=== PATIENT | female | born 1970 | race Caucasian/White ===

== ENCOUNTER 2016-10-15 02:09 | Observation (INO) ==
[2016-10-15] MEDS ORDERED: 0.9 % Sodium Chloride 1,000 ML IVC ONE ×2 (02:18→06:37)
[2016-10-15 02:56] LABS: Bilirubin,Urine Negative (Negative); Blood,Urine Negative (Negative); Clarity,Urine Clear (Clear); Color,Urine Yellow (Yellow); Glucose,Urine (UA) Normal (Normal); Ketones,Urine Negative (Negative); Leukocyte Esterase,Urine Negative (Negative); Nitrite,Urine Negative (Negative); PH,Urine 6.5 pH Units (5.0-8.0); Protein,Urine 100 mg/dL (Neg-Trace); Specific Gravity,Urine 1.006 (1.010-1.025); Urobilinogen,Urine Normal (Normal)
[2016-10-15 02:58] LABS: Bacteria,Urine None Seen per hpf (None-Few); Hyaline Casts,Urine None Seen per lpf (None-Few); RBC,Urine 0-3 per hpf (0-3); Squamous Epithelial Cell,Urine Many per lpf (None-Few); WBC,Urine 0-3 per hpf (0-3)
[2016-10-15 03:04] LABS: Amphetamine Screen,Urine Negative ng/mL (Cutoff=1000); Barbiturate Screen,Urine Negative ng/mL (Cutoff=200); Benzodiazepines Screen,Urine Negative ng/mL (Cutoff=200); Cannabinoid Screen,Urine Negative ng/mL (Cutoff = 50); Cocaine Screen,Urine Negative ng/mL (Cutoff= 300); Opiate Screen,Urine Negative ng/mL (Cutoff=300); Phencyclidine Screen,Urine Negative ng/mL (Cutoff=25)
[2016-10-15] MEDS ORDERED: 0.9 % Sodium Chloride 1,000 ML ONE ×2 (03:06→04:45)
--- NOTE | 2016-10-15 06:06 | Emergency Department Note ---
START Narrative - START START: I, David Craig MD, personally performed a history and physical exam of the patient and discussed their management with the midlevel provicer, PAC/REAL PROPERTY APPRAISER. I reviewed the midlevel provider's note and agree with the documented findings, medical decision making, and plan of care. 46-year-old female presents to the emergency department after an intentional overdose. Patient drank a bunch of alcohol and took 7 or 8 of her Zanaflex muscle relaxers. Patient states that she does not really know if she was trying to hurt herself but she just got mad. She states that she did fall and hit the back of her head and complains of some soreness and pain in the back of her head and neck. No other pain or injury. On examination patient is a well-developed well-nourished female in no acute distress. She is alert and oriented 3. There is no cyanosis or diaphoresis. She does appear intoxicated and there is a strong odor of alcohol on her breath. Some diffuse tenderness over the posterior neck and occipital scalp but no palpable hematomas. Breath sounds are clear and equal bilaterally. Heart regular rate and rhythm. Abdomen soft with normal bowel sounds. No gross focal neurological deficits. CT of the head and cervical spine was obtained and was negative. Urine tox screen negative. Labs reviewed. Alcohol level 115. No acute changes on EKG. Patient did develop some hypotension while here in the emergency department requiring normal saline boluses. Plan is to consult the hospitalist for admission. At shift change the patient [facility] Selina Hines. She was also discussed with the oncoming physician Dr. Casas.
[2016-10-15 07:11] LABS: Basophils # 0.1 K/mcL (0.0-0.2); Basophils % 0.4 %; Eosinophils # 0.2 K/mcL (0.0-0.6); Eosinophils % 1.4 %; Hematocrit 37.9 % (35.3-44.9); Hemoglobin 12.7 g/dL (11.5-15.4); Lymphocytes % 33.9 %; Mean Corpuscular HGB Conc 33.5 g/dL (31.6-35.5); Mean Corpuscular Hemoglobin 32.3 pg (28.0-33.3); Mean Corpuscular Volume 96.4 fL (83.0-100.0); Mean Platelet Volume 10.1 fL (9.4-12.4); Monocytes # 0.6 K/mcL (0.0-1.3); Monocytes % 5.2 %; Neutrophils # 6.8 K/mcL (1.6-8.9); Platelet Count 209 K/mcL (140-400); Red Blood Count 3.93 M/mcL (3.82-4.97); Red Cell Distribution Width 12.1 % (11.5-14.5); Segmented Neutrophils % 58.1 %
[2016-10-15 07:13] LABS: Alanine Aminotransferase 39 Units/L (0-55); Albumin 3.2 g/dL (3.5-5.0); Albumin/Globulin Ratio 1.1 (1.1-2.2); Alkaline Phosphatase 67 Units/L (38-126); Aspartate Amino Transferase 24 Units/L (5-34); BUN/Creatinine Ratio 14 (6-26); Bilirubin,Direct 0.2 mg/dL (0.0-0.5); Bilirubin,Indirect 0.2 mg/dL (0.0-1.2); Bilirubin,Total 0.4 mg/dL (0.2-1.2); Blood Urea Nitrogen 9 mg/dL (7-20); Carbon Dioxide 16 mEq/L (19-29); Chloride 111 mEq/L (98-109); Ethanol 115 mg/dL (0-10); Globulin 2.8 g/dL (2.4-3.5); Glucose 106 mg/dL (70-99); Osmolality,Calculated 289 (280-300); Sodium 140 mEq/L (136-145); eGFR For African Americans > 60 (> 60); eGFR For Non-African Americans > 60 (> 60)
[2016-10-15 07:14] LABS: Acetaminophen < 1.0 mcg/mL (10-30); Salicylate < 5.0 mg/dL (15-30)
--- NOTE | 2016-10-15 07:15 | Emergency Department Note ---
Overdose - Lab Data Result diagrams: 10/15/16 06:52 10/15/16 06:52 Lab Results 10/15/16 10/15/16 10/15/16 Range/Units 02:50 02:50 02:50 WBC (4.3-11.1) K/mcL RBC (3.82-4.97) M/mcL Hgb (11.5-15.4) g/dL Hct (35.3-44.9) % MCV (83.0-100.0) fL MCH (28.0-33.3) pg MCHC (31.6-35.5) g/dL RDW (11.5-14.5) % Plt Count (140-400) K/mcL MPV (9.4-12.4) fL Immature Gran % (0-4) % Seg Neutrophils % % Lymphocytes % % Monocytes % % Eosinophils % % Basophils % % Neutrophils # (1.6-8.9) K/mcL Lymphocytes # (0.6-4.6) K/mcL Monocytes # (0.0-1.3) K/mcL Eosinophils # (0.0-0.6) K/mcL Basophils # (0.0-0.2) K/mcL Sodium (136-145) mEq/L Potassium (3.5-4.5) mEq/L Chloride (98-109) mEq/L Carbon Dioxide (19-29) mEq/L BUN (7-20) mg/dL Creatinine (0.57-1.11) mg/dL Est GFR ( Amer) (> 60) Est GFR (Non-Af Amer) (> 60) BUN/Creatinine Ratio (6-26) Glucose (70-99) mg/dL Calculated Osmolality (280-300) Calcium (8.6-10.8) mg/dL Total Bilirubin (0.2-1.2) mg/dL Direct Bilirubin (0.0-0.5) mg/dL Indirect Bilirubin (0.0-1.2) mg/dL AST (5-34) Units/L ALT (0-55) Units/L Alkaline Phosphatase (38-126) Units/L Serum Total Protein (6.0-8.3) g/dL Albumin (3.5-5.0) g/dL Globulin (2.4-3.5) g/dL Albumin/Globulin Ratio (1.1-2.2) Urine Color Yellow (Yellow) Urine Clarity Clear (Clear) Urine pH 6.5 (5.0-8.0) pH Units Ur Specific [place] 1.006 L (1.010-1.025) Urine Protein 100 H (Neg-Trace) mg/dL Urine Glucose (UA) Normal (Normal) mg/dL Urine Ketones Negative (Negative) mg/dL Urine Blood Negative (Negative) Urine Nitrite Negative (Negative) Urine Bilirubin Negative (Negative) Urine Urobilinogen Normal (Normal) mg/dL Ur Leukocyte Esterase Negative (Negative) Urine Microscopic RBC 0-3 (0-3) per hpf Urine Microscopic WBC 0-3 (0-3) per hpf Ur Squamous Epith Cells Many H (None-Few) per lpf Urine Bacteria None Seen (None-Few) per hpf Hyaline Casts None Seen (None-Few) per lpf Urine Test Negative (Negative) Salicylates (15-30) mg/dL Urine Opiates Screen Negative (Mdlksf=705) ng/mL Acetaminophen (10-30) mcg/mL Ur Barbiturates Screen Negative (Mxawoq=567) ng/mL Ur Phencyclidine Scrn Negative (Cutoff=25) ng/mL Ur Amphetamines Screen Negative (Rhnxxf=8694) ng/mL U Benzodiazepines Scrn Negative (Piervb=852) ng/mL Urine Cocaine Screen Negative (Cutoff= 300) ng/mL U Marijuana (THC) Screen Negative (Cutoff = 50) ng/mL Ethyl Alcohol (0-10) mg/dL 10/15/16 10/15/16 Range/Units 06:52 06:52 WBC 11.8 H (4.3-11.1) K/mcL RBC 3.93 (3.82-4.97) M/mcL Hgb 12.7 (11.5-15.4) g/dL Hct 37.9 (35.3-44.9) % MCV 96.4 (83.0-100.0) fL MCH 32.3 (28.0-33.3) pg MCHC 33.5 (31.6-35.5) g/dL RDW 12.1 (11.5-14.5) % Plt Count 209 (140-400) K/mcL MPV 10.1 (9.4-12.4) fL Immature Gran % 1.0 (0-4) % Seg Neutrophils % 58.1 % Lymphocytes % 33.9 % Monocytes % 5.2 % Eosinophils % 1.4 % Basophils % 0.4 % Neutrophils # 6.8 (1.6-8.9) K/mcL Lymphocytes # 4.0 (0.6-4.6) K/mcL Monocytes # 0.6 (0.0-1.3) K/mcL Eosinophils # 0.2 (0.0-0.6) K/mcL Basophils # 0.1 (0.0-0.2) K/mcL Sodium 140 (136-145) mEq/L Potassium 4.0 (3.5-4.5) mEq/L Chloride 111 H (98-109) mEq/L Carbon Dioxide 16 L (19-29) mEq/L BUN 9 (7-20) mg/dL Creatinine 0.63 (0.57-1.11) mg/dL Est GFR ( Amer) > 60 (> 60) Est GFR (Non-Af Amer) > 60 (> 60) BUN/Creatinine Ratio 14 (6-26) Glucose 106 H (70-99) mg/dL Calculated Osmolality 289 (280-300) Calcium 8.0 L (8.6-10.8) mg/dL Total Bilirubin 0.4 (0.2-1.2) mg/dL Direct Bilirubin 0.2 (0.0-0.5) mg/dL Indirect Bilirubin 0.2 (0.0-1.2) mg/dL AST 24 (5-34) Units/L ALT 39 (0-55) Units/L Alkaline Phosphatase 67 (38-126) Units/L Serum Total Protein 6.0 (6.0-8.3) g/dL Albumin 3.2 L (3.5-5.0) g/dL Globulin 2.8 (2.4-3.5) g/dL Albumin/Globulin Ratio 1.1 (1.1-2.2) Urine Color (Yellow) Urine Clarity (Clear) Urine pH (5.0-8.0) pH Units Ur Specific [place] (1.010-1.025) Urine Protein (Neg-Trace) mg/dL Urine Glucose (UA) (Normal) mg/dL Urine Ketones (Negative) mg/dL Urine Blood (Negative) Urine Nitrite (Negative) Urine Bilirubin (Negative) Urine Urobilinogen (Normal) mg/dL Ur Leukocyte Esterase (Negative) Urine Microscopic RBC (0-3) per hpf Urine Microscopic WBC (0-3) per hpf Ur Squamous Epith Cells (None-Few) per lpf Urine Bacteria (None-Few) per hpf Hyaline Casts (None-Few) per lpf Urine Test (Negative) Salicylates < 5.0 L (15-30) mg/dL Urine Opiates Screen (Pgsiek=981) ng/mL Acetaminophen < 1.0 L (10-30) mcg/mL Ur Barbiturates Screen (Sarukx=772) ng/mL Ur Phencyclidine Scrn (Cutoff=25) ng/mL Ur Amphetamines Screen (Sahcbm=9249) ng/mL U Benzodiazepines Scrn (Eaypyt=203) ng/mL Urine Cocaine Screen (Cutoff= 300) ng/mL U Marijuana (THC) Screen (Cutoff = 50) ng/mL Ethyl Alcohol 115 H (0-10) mg/dL - Radiology Data Radiology results reviewed: Yes I reviewed the patient's radiology results. - EKG Data EKG attestation: Yes I reviewed and interpreted this EKG. Overdose HPI - General Chief Complaint: ED Overdose Stated Complaint: Overdose Time Seen by Provider: 10/15/16 02:18 Source: patient, EMS Limitations: no limitations Nursing Notes Reviewed: Yes Vital Signs Reviewed: Yes - History of Present Illness Pt Subjective Complaint: accidental overdose Onset (ago): unknown Intent: other (pain control) How Overdose Was Discovered: family/friend present at time Associated symptoms: lethargy Treatments Prior to Arrival: none - Related Data Home Medications Medication Instructions Recorded Confirmed Bupropion HCl [Wellbutrin Xl] 300 mg PO DAILY 10/15/16 10/15/16 Ergocalciferol (VITAMIN D2) 50,000 unit PO MOFR 10/15/16 10/15/16 [Vitamin D2] Ferrous Sulfate [Ferrous Sulfate] 325 mg PO BID 10/15/16 10/15/16 Hydroxyzine HCl [Hydroxyzine HCl] 25 mg PO TID 10/15/16 10/15/16 Loratadine [Claritin] 10 mg PO DAILY 10/15/16 10/15/16 Meloxicam [Meloxicam] 7.5 mg PO DAILY 10/15/16 10/15/16 Omeprazole [PriLOSEC] 20 mg PO BID 10/15/16 10/15/16 Polyethylene Glycol 3350 [MiraLAX] 17 gm PO DAILY PRN 10/15/16 10/15/16 Sertraline [Zoloft] 100 mg PO DAILY 10/15/16 10/15/16 Sucralfate [Sucralfate] 1 gm PO QID 10/15/16 10/15/16 Allergies Allergy/AdvReac Type Severity Reaction Status Date / Time No Known Allergies Allergy Verified 10/05/16 15:21 Limitations: ROS unobtainable due to patients medical condition Past Medical History - Past Medical History Medical history: Reports: non-contributory Surgical history: Reports: non-contributory Psychiatric history: Reports: no psych history - Social History Smoking Status: Current every day smoker Smokeless Tobacco Status: No Alcohol use: Reports: heavy, recent Drug use: Reports: none Physical Exam - General Limitations: altered mental status General appearance: appears intoxicated, lethargic - Head Head exam: atraumatic, normocephalic - Eye Eye exam: Absent: scleral icterus, conjunctival injection, periorbital swelling , periorbital tenderness - ENT ENT exam: normal oropharynx, mucous membranes moist, normal external ear exam - Neck Neck exam: Present: full ROM. Absent: tenderness, lymphadenopathy - Chest Chest inspection: Present: normal inspection, symmetric chest wall rise - Respiratory Respiratory exam: Present: normal lung sounds bilaterally. Absent: respiratory distress - Cardiovascular Cardiovascular exam: Present: regular rate, normal rhythm. Absent: irregular rhythm - Abdominal Exam Abdominal exam: Present: soft, Non-Tender - Extremities Exam Extremities exam: Present: normal inspection, full ROM, normal capillary refill. Absent: tenderness - Back Exam Back exam: Present: full ROM - Skin Skin exam: Present: warm, dry, intact, normal color. Absent: rash, cyanosis, diaphoresis Course Course Narrative: 46yo Female arrives via squad with reported overdose of 7-8 4m tizanadine as well as alochol. nursing reports pt had drank an entire bottle of vodka. Ingestion time is unknown. Pt seen upon her arrival to exam room. she appears somnolent but responded to sternum rub. She became more alert and stated she took medications to help control her back pain. She states that she did not take the pills intent to harm herself. She mentions that her teenage children had found her at home and had called the squad. On examination no concerning signs of injury or trauma. However When asked, patient stated that she had fallen and injured herself. Workup initiated. CT head and cervical spine ordered. - Reevaluation(s) Reevaluation #1: Patient has been resting comfortably in exam bed. She has been receiving fluids for hypotension. EKG sinus rhythm, normal EKG. Lab work is pending. Did discuss this patient with Dr. Craig, and also has face time with patient. We will continue to monitor patient's vitals, continue fluids, and reevaluate. Negative CT scans. There is a Possible concern for suicidal ideation. At this time it is at the end of my shift and care of this [facility] Please see their following documentation for additional details. Vital Signs Temperature 97.9 F 10/15/16 02:17 Pulse Rate 74 10/15/16 02:17 Respiratory Rate 14 10/15/16 02:17 Blood Pressure 73/39 10/15/16 02:17 O2 Sat by Pulse Oximetry 93 L 10/15/16 02:17 Temperature 97.9 F 10/15/16 02:17 Pulse Rate 71 10/15/16 06:25 Respiratory Rate 14 10/15/16 06:25 Blood Pressure 74/34 10/15/16 06:25 O2 Sat by Pulse Oximetry 99 10/15/16 06:25 Oxygen Delivery Oxygen Delivery Room Air Disposition Clinical Impression: Hypotension arterial Drug overdose Qualifiers: Encounter type: initial encounter Injury intent: accidental or unintentional Qualified Code(s): T50.901A - Poisoning by unspecified drugs, medicaments and biological substances, accidental (unintentional), initial encounter Disposition: Admitted As Inpatient Condition: Fair Referrals: NO,PCP [Primary Care Provider] - Forms: ED Satisfaction Letter Time of Disposition: 07:15 Attestation Statement - Attestation Attestation: I, David Craig MD, personally performed a history and physical exam of the patient and discussed their management with the midlevel provicer, PAC/PLUNGER MACHINE OPERATOR. I reviewed the midlevel provider's note and agree with the documented findings, medical decision making, and plan of care. See additional START note from this emergency department visit.
--- NOTE | 2016-10-15 07:40 | Emergency Department Note ---
Overdose - Lab Data Result diagrams: 10/15/16 06:52 10/15/16 06:52 Lab Results 10/15/16 10/15/16 10/15/16 Range/Units 02:50 02:50 02:50 WBC (4.3-11.1) K/mcL RBC (3.82-4.97) M/mcL Hgb (11.5-15.4) g/dL Hct (35.3-44.9) % MCV (83.0-100.0) fL MCH (28.0-33.3) pg MCHC (31.6-35.5) g/dL RDW (11.5-14.5) % Plt Count (140-400) K/mcL MPV (9.4-12.4) fL Immature Gran % (0-4) % Seg Neutrophils % % Lymphocytes % % Monocytes % % Eosinophils % % Basophils % % Neutrophils # (1.6-8.9) K/mcL Lymphocytes # (0.6-4.6) K/mcL Monocytes # (0.0-1.3) K/mcL Eosinophils # (0.0-0.6) K/mcL Basophils # (0.0-0.2) K/mcL Sodium (136-145) mEq/L Potassium (3.5-4.5) mEq/L Chloride (98-109) mEq/L Carbon Dioxide (19-29) mEq/L BUN (7-20) mg/dL Creatinine (0.57-1.11) mg/dL Est GFR ( Amer) (> 60) Est GFR (Non-Af Amer) (> 60) BUN/Creatinine Ratio (6-26) Glucose (70-99) mg/dL Calculated Osmolality (280-300) Calcium (8.6-10.8) mg/dL Total Bilirubin (0.2-1.2) mg/dL Direct Bilirubin (0.0-0.5) mg/dL Indirect Bilirubin (0.0-1.2) mg/dL AST (5-34) Units/L ALT (0-55) Units/L Alkaline Phosphatase (38-126) Units/L Serum Total Protein (6.0-8.3) g/dL Albumin (3.5-5.0) g/dL Globulin (2.4-3.5) g/dL Albumin/Globulin Ratio (1.1-2.2) Urine Color Yellow (Yellow) Urine Clarity Clear (Clear) Urine pH 6.5 (5.0-8.0) pH Units Ur Specific [place] 1.006 L (1.010-1.025) Urine Protein 100 H (Neg-Trace) mg/dL Urine Glucose (UA) Normal (Normal) mg/dL Urine Ketones Negative (Negative) mg/dL Urine Blood Negative (Negative) Urine Nitrite Negative (Negative) Urine Bilirubin Negative (Negative) Urine Urobilinogen Normal (Normal) mg/dL Ur Leukocyte Esterase Negative (Negative) Urine Microscopic RBC 0-3 (0-3) per hpf Urine Microscopic WBC 0-3 (0-3) per hpf Ur Squamous Epith Cells Many H (None-Few) per lpf Urine Bacteria None Seen (None-Few) per hpf Hyaline Casts None Seen (None-Few) per lpf Urine Test Negative (Negative) Salicylates (15-30) mg/dL Urine Opiates Screen Negative (Nykpxb=411) ng/mL Acetaminophen (10-30) mcg/mL Ur Barbiturates Screen Negative (Saeybq=966) ng/mL Ur Phencyclidine Scrn Negative (Cutoff=25) ng/mL Ur Amphetamines Screen Negative (Vpzfkc=7237) ng/mL U Benzodiazepines Scrn Negative (Lmwmhm=046) ng/mL Urine Cocaine Screen Negative (Cutoff= 300) ng/mL U Marijuana (THC) Screen Negative (Cutoff = 50) ng/mL Ethyl Alcohol (0-10) mg/dL 10/15/16 10/15/16 Range/Units 06:52 06:52 WBC 11.8 H (4.3-11.1) K/mcL RBC 3.93 (3.82-4.97) M/mcL Hgb 12.7 (11.5-15.4) g/dL Hct 37.9 (35.3-44.9) % MCV 96.4 (83.0-100.0) fL MCH 32.3 (28.0-33.3) pg MCHC 33.5 (31.6-35.5) g/dL RDW 12.1 (11.5-14.5) % Plt Count 209 (140-400) K/mcL MPV 10.1 (9.4-12.4) fL Immature Gran % 1.0 (0-4) % Seg Neutrophils % 58.1 % Lymphocytes % 33.9 % Monocytes % 5.2 % Eosinophils % 1.4 % Basophils % 0.4 % Neutrophils # 6.8 (1.6-8.9) K/mcL Lymphocytes # 4.0 (0.6-4.6) K/mcL Monocytes # 0.6 (0.0-1.3) K/mcL Eosinophils # 0.2 (0.0-0.6) K/mcL Basophils # 0.1 (0.0-0.2) K/mcL Sodium 140 (136-145) mEq/L Potassium 4.0 (3.5-4.5) mEq/L Chloride 111 H (98-109) mEq/L Carbon Dioxide 16 L (19-29) mEq/L BUN 9 (7-20) mg/dL Creatinine 0.63 (0.57-1.11) mg/dL Est GFR ( Amer) > 60 (> 60) Est GFR (Non-Af Amer) > 60 (> 60) BUN/Creatinine Ratio 14 (6-26) Glucose 106 H (70-99) mg/dL Calculated Osmolality 289 (280-300) Calcium 8.0 L (8.6-10.8) mg/dL Total Bilirubin 0.4 (0.2-1.2) mg/dL Direct Bilirubin 0.2 (0.0-0.5) mg/dL Indirect Bilirubin 0.2 (0.0-1.2) mg/dL AST 24 (5-34) Units/L ALT 39 (0-55) Units/L Alkaline Phosphatase 67 (38-126) Units/L Serum Total Protein 6.0 (6.0-8.3) g/dL Albumin 3.2 L (3.5-5.0) g/dL Globulin 2.8 (2.4-3.5) g/dL Albumin/Globulin Ratio 1.1 (1.1-2.2) Urine Color (Yellow) Urine Clarity (Clear) Urine pH (5.0-8.0) pH Units Ur Specific [place] (1.010-1.025) Urine Protein (Neg-Trace) mg/dL Urine Glucose (UA) (Normal) mg/dL Urine Ketones (Negative) mg/dL Urine Blood (Negative) Urine Nitrite (Negative) Urine Bilirubin (Negative) Urine Urobilinogen (Normal) mg/dL Ur Leukocyte Esterase (Negative) Urine Microscopic RBC (0-3) per hpf Urine Microscopic WBC (0-3) per hpf Ur Squamous Epith Cells (None-Few) per lpf Urine Bacteria (None-Few) per hpf Hyaline Casts (None-Few) per lpf Urine Test (Negative) Salicylates < 5.0 L (15-30) mg/dL Urine Opiates Screen (Xvhizv=101) ng/mL Acetaminophen < 1.0 L (10-30) mcg/mL Ur Barbiturates Screen (Axznpw=596) ng/mL Ur Phencyclidine Scrn (Cutoff=25) ng/mL Ur Amphetamines Screen (Umwaby=3466) ng/mL U Benzodiazepines Scrn (Weenve=719) ng/mL Urine Cocaine Screen (Cutoff= 300) ng/mL U Marijuana (THC) Screen (Cutoff = 50) ng/mL Ethyl Alcohol 115 H (0-10) mg/dL Overdose HPI - General Chief Complaint: ED Overdose Stated Complaint: Overdose Time Seen by Provider: 10/15/16 02:18 Source: patient, EMS Limitations: altered mental status - Related Data Home Medications Medication Instructions Recorded Confirmed Bupropion HCl [Wellbutrin Xl] 300 mg PO DAILY 10/15/16 10/15/16 Ergocalciferol (VITAMIN D2) 50,000 unit PO MOFR 10/15/16 10/15/16 [Vitamin D2] Ferrous Sulfate [Ferrous Sulfate] 325 mg PO BID 10/15/16 10/15/16 Hydroxyzine HCl [Hydroxyzine HCl] 25 mg PO TID 10/15/16 10/15/16 Loratadine [Claritin] 10 mg PO DAILY 10/15/16 10/15/16 Meloxicam [Meloxicam] 7.5 mg PO DAILY 10/15/16 10/15/16 Omeprazole [PriLOSEC] 20 mg PO BID 10/15/16 10/15/16 Polyethylene Glycol 3350 [MiraLAX] 17 gm PO DAILY PRN 10/15/16 10/15/16 Sertraline [Zoloft] 100 mg PO DAILY 10/15/16 10/15/16 Sucralfate [Sucralfate] 1 gm PO QID 10/15/16 10/15/16 Allergies Allergy/AdvReac Type Severity Reaction Status Date / Time No Known Allergies Allergy Verified 10/05/16 15:21 Past Medical History - Past Medical History Medical history: Reports: non-contributory Surgical history: Reports: non-contributory Psychiatric history: Reports: no psych history - Social History Smoking Status: Current every day smoker Smokeless Tobacco Status: No Alcohol use: Reports: heavy, recent Drug use: Reports: none Physical Exam - General Limitations: altered mental status General appearance: appears intoxicated, lethargic Course - Reevaluation(s) Reevaluation #1: Patient received in signout from Dr. Craig at 7 AM. Patient took multiple tablets of her Zanaflex. Patient also consumed alcohol.. She said she "wanted to get high". Patient has been observed for 5-1/2 hours in the emergency department and Motrin and maintains to be persistently hypotensive with a systolic in the mid to low 90s despite receiving 40+ liter normal saline boluses. Patient is arousable to voice. GCS 15. Patient is getting a breakfast tray. Hospitalist was paged for admission. Provided 40 minutes critical care service for this patient. Time: 07:38 Reevaluation #2: Discussed the case with Dr. Hoyt hospitalist. Patient accepted for admission in stable condition. Time: 08:29 Vital Signs Temperature 97.9 F 10/15/16 02:17 Pulse Rate 74 10/15/16 02:17 Respiratory Rate 14 10/15/16 02:17 Blood Pressure 73/39 10/15/16 02:17 O2 Sat by Pulse Oximetry 93 L 10/15/16 02:17 Temperature 97.9 F 10/15/16 02:17 Pulse Rate 80 10/15/16 07:46 Respiratory Rate 18 10/15/16 07:46 Blood Pressure 98/57 10/15/16 07:46 O2 Sat by Pulse Oximetry 96 10/15/16 07:46 Oxygen Delivery Oxygen Delivery Room Air Disposition Clinical Impression: Drug overdose Qualifiers: Encounter type: initial encounter Injury intent: accidental or unintentional Qualified Code(s): T50.901A - Poisoning by unspecified drugs, medicaments and biological substances, accidental (unintentional), initial encounter Hypotension arterial Qualifiers: Hypotension type: hypotension due to drug Qualified Code(s): I95.2 - Hypotension due to drugs Disposition: Admitted As Inpatient Condition: Good Referrals: NO,PCP [Primary Care Provider] - Forms: ED Satisfaction Letter Time of Disposition: 07:40
[2016-10-15] MEDS ORDERED: Ondansetron 4 MG/2 ML VIAL IVP PRN (09:05)
[2016-10-15] MEDS ORDERED: Acetaminophen 325 MG TABLET PO PRN (09:05)
[2016-10-15] MEDS ORDERED: Naloxone 0.4 MG/ML INJ IVP PRN (09:05)
[2016-10-15] MEDS ORDERED: Ringers Solution, Lactated 1,000 ML IVC SCH (09:15)
[2016-10-15 09:25] LABS: Magnesium 1.9 mg/dL (1.6-2.6)
--- NOTE | 2016-10-15 09:28 | Internal Med History&Physical ---
Date of Encounter: 10/15/16 Time of Encounter: 08:40 Assessment and Plan (1) Drug overdose Current visit: Yes Status: Acute Sometime before 2am, she drank an entire bottle of vodka and took 7-8 4mg tinazidine pills. No suicidal attempt. Patient was very somnolent and hypotensive on arrival. She received 4 L of IV normal saline with improvement of her blood pressure and mental status. Patient is still dizzy, lightheaded and mildly confused. I will continue supportive therapy with IV hydration, telemetry monitoring and VS q4hr. check orthostatics. I will reassess patient in the afternoon and if no hypotension and patient ambulating and eating well I will send her home. Qualifiers: Encounter type: initial encounter Injury intent: accidental or unintentional Qualified Code(s): T50.901A - Poisoning by unspecified drugs, medicaments and biological substances, accidental (unintentional), initial encounter (2) Hypotension arterial Current visit: Yes Status: Acute Secondary to ingestion of tinazidine and alcohol. Improve after 4 L of IV fluids. Check orthostatics. Continue gentle IV fluid hydration with lactated Ringer's due to hyperchloremic metabolic acidosis. Qualifiers: Hypotension type: hypotension due to drug Qualified Code(s): I95.2 - Hypotension due to drugs (3) Acute encephalopathy Current visit: Yes Status: Acute Acute metabolic encephalopathy secondary to medication overdose. Kidney supportive therapy. Patient's mental status is already improving. (4) Alcohol intoxication Current visit: Yes Status: Acute Alcohol level 115. Continue supportive therapy with IV fluids. Qualifiers: Complication of substance-induced condition: uncomplicated Qualified Code(s ): F10.120 - Alcohol abuse with intoxication, uncomplicated (5) Hyperchloremic metabolic acidosis Current visit: Yes Status: Acute Secondary to IV normal saline. Change fluids to lactated Ringer's. (6) Depression Current visit: No Status: Chronic Patient with history of depression on Zoloft and bupropion. Will hold medications due to medication overdose Qualifiers: Depression Type: unspecified Qualified Code(s): F32.9 - Major depressive disorder, single episode, unspecified (7) Alcohol abuse Current visit: No Status: Chronic Patient is intoxicated. We will child and family counselor her to quit drinking upon discharge. (8) Tobacco abuse Current visit: No Status: Chronic I will child and family counselor her to quit smoking upon discharge. Internal Medicine - H&P: HPI Chief complaint: Patient took multiple pills of Zanaflex this morning. Admitted From: Home Plans for Post Hospital Care: Home History of present illness: Ms. House is a 46 year old female with past medical history of chronic back pain and mood disorder for which she takes Zanaflex, meloxicam, bupropion and Zoloft. Patient is alert and answering all questions. She does not remember exactly what happened but sometime before she came she drank an entire bottle of vodka and took 7-8 4mg tinazidine pills. She denies any suicidal inpatient. She just wanted to feel better and get high. Her teenaged children on her, called EMS. She denies any syncope, headache, focal deficit, chest pain, shortness of breath, abdominal pain, cough, fever, upper respiratory symptoms, diarrhea, urinary problems, or edema. On arrival to our ED, patient was somnolent and hypotensive BP 73/39. She received 4 L of IV fluids. Currently, she feels dizzy and lightheaded. She would like her urinary catheter to be taken off. Past Med Surg Social Fam HX - Past Medical History Medical history: other (chronic back pain) Psychiatric history: depression - Past Surgical History Surgical History: other (left shoulder surgery) - Social History Smoking Status: Current every day smoker Smokeless Tobacco Status: No Alcohol use: heavy, recent Drug use: none - Family History Mother Hx Family Cardiac Disorders: Yes (htn) Internal Medicine - H&P: Meds Bupropion HCl [Wellbutrin Xl] 300 mg PO DAILY 10/15/16 [History] Ergocalciferol (VITAMIN D2) [Vitamin D2] 50,000 unit PO MOFR 10/15/16 [History] Ferrous Sulfate [Ferrous Sulfate] 325 mg PO BID 10/15/16 [History] Hydroxyzine HCl [Hydroxyzine HCl] 25 mg PO TID 10/15/16 [History] Loratadine [Claritin] 10 mg PO DAILY 10/15/16 [History] Meloxicam [Meloxicam] 7.5 mg PO DAILY 10/15/16 [History] Omeprazole [PriLOSEC] 20 mg PO BID 10/15/16 [History] Polyethylene Glycol 3350 [MiraLAX] 17 gm PO DAILY PRN 10/15/16 [History] Sertraline [Zoloft] 100 mg PO DAILY 10/15/16 [History] Sucralfate [Sucralfate] 1 gm PO QID 10/15/16 [History] Allergies No Known Allergies Allergy (Verified 10/05/16 15:21) All Systems PM: A 10-system review of systems was performed and is negative for pertinent findings except as documented above in the HPI. - Constitutional Vitals: Temp Pulse Resp BP Pulse Ox 97.9 F 88 18 121/68 97 10/15/16 02:17 10/15/16 08:57 10/15/16 08:57 10/15/16 08:57 10/15/16 08:57 General appearance: Present: cooperative, A&O X 2, pleasant, no acute distress Exam: Patient seems mildly confused but is able to answer all questions. - Head Head exam: Present: atraumatic - Eye Eye exam: Present: PERRL, sclera anicteric - ENT ENT exam: Present: mucous membranes dry - Neck Neck exam general surgery: Present: supple, trachea midline. Absent: lymphadenopathy - Respiratory Respiratory exam: Present: CTAB - Cardiovascular Cardiovascular exam: Present: RRR - GI/Abdominal GI/Abdominal exam: Present: normal bowel sounds, soft. Absent: distended, tenderness - Extremities Exam Extremities exam: Absent: pedal edema - Back Exam Back exam: Absent: CVA tenderness (L), CVA tenderness (R) - Neurological Exam Neurological exam: Present: alert, oriented X3, no focal deficits, strengths equal and symetr throughout. Absent: facial droop, speech deficit - Skin Skin exam: Present: dry, intact. Absent: rash Internal Med - H&P Results - Labs CBC & Chem 7: 10/15/16 06:52 10/15/16 06:52
[2016-10-15] MEDS ORDERED: Sucralfate 1 GM TABLET PO SCH (11:30)
[2016-10-15 13:32] VITALS: BP 116/68
[2016-10-16] MEDS ORDERED: Loratadine 10 MG TABLET PO SCH (09:00)
--- NOTE | 2016-10-16 15:15 | Electrocardiograph Report ---
[address] [address] Test Date: 2016-10-15 Pat Name: Samanta House Department: 105 Room: [facility] Gender: F Gardening Supervisor: : 1970 Requested By: Koko Palomino Order Number: [id number] Reading MD: Lou Kramer Measurements Intervals [place] Rate: 73 P: 54 FL: 176 QRS: 45 QRSD: 105 T: 9 QT: 418 QTc: 444 Interpretive Statements SINUS RHYTHM Electronically Signed On 10-16-2016 15:13:44 EST by Lou Kramer
== END 2016-10-15 14:24 | disposition left against medical advice (07) ==
LOC: 3NENU 02:09 → EMEROO 02:09 → 3NENU 10:35
PROVIDERS: ADMIT Internal Medicine; ATTEND Internal Medicine